=== PATIENT | female | born 1985 ===

== ENCOUNTER → 2023-05-10 08:38 | Outpatient (CLI) | payer OTHER, SELFPAY ==
[2023-05-10 09:11] LABS: Hematocrit 39.2 % (36-46); Hemoglobin 13.2 g/dL (12.0-16.0); Mean Corpuscular HGB Conc 33.7 % (30-36); Mean Corpuscular Hemoglobin 31.6 PG (26-34); Mean Corpuscular Volume 93.7 fL (80-100); Platelet Count 193 X10^3/uL (150-400); Red Blood Cell Count 4.19 X10^6/uL (4.0-5.2); Red Cell Distribution Width 12.9 % (11.6-14.8); White Blood Cell Count 4.8 X10^3/uL (4.5-11.0)
[2023-05-10 09:25] LABS: Alanine Aminotransferase 20 IU/L (<35); Albumin 4.3 g/dL (3.5-5.0); Albumin Globulin Ratio 1.3 (1.0-2.8); Alkaline Phosphatase 36 U/L (38-126); Aspartate Aminotransferase 24 IU/L (14-36); BUN Creatinine Ratio 16.7 (6-22); Bilirubin Total 0.4 mg/dL (0.2-1.3); Blood Urea Nitrogen 9 mg/dL (7-17); Calcium 9.3 mg/dL (8.4-10.2); Carbon Dioxide 27 mmol/L (22-32); Chloride 103 mmol/L (98-107); Cholesterol 162 mg/dL (140-199); Estimated Glomerular Filt Rate > 60 mL/min (>60); Globulin 3.2 g/dL (1.7-4.1); Glucose 83 mg/dL (70-100); HDL Cholesterol 46 mg/dL (40-60); HEMOLYSIS < 15 (0-50); Iron 109 ug/dL (37-170); LDL Cholesterol Calculated 103 mg/dL (<100); Potassium 4.4 mmol/L (3.4-5.1); Sodium 138 mmol/L (137-145); Total Protein 7.5 g/dL (6.3-8.2); Triglycerides 65 mg/dL (35-150)
[2023-05-10 09:36] LABS: Percent Iron Saturation 31 % (15-50); Total Iron Binding Capacity 351 ug/dL (265-497); Transferrin 260 mg/dL (206-381)
[2023-05-10 09:57] LABS: TSH w/ Reflex to FT4 0.78 uIU/mL (0.47-4.68)
[2023-05-10 09:59] LABS: Ferritin 24 ng/mL (6-137)
== END ==
PROVIDERS: PCP Registered Nurse Diabetes Educator; Referring Provider Registered Nurse Diabetes Educator; Visit Provider Registered Nurse Diabetes Educator
DX: E78.5 Hyperlipidemia, unspecified (principal); L65.0 Telogen effluvium
CPT/HCPCS: 36415; 80053; 80061; 82728; 83540; 83550; 84443; 85027

== ENCOUNTER 2023-11-08 18:47 | Emergency (ER) | payer OTHER, SELFPAY ==
[2023-11-08 18:59] VITALS: BP 120/70; PULSE 90; RESP 14; TEMP 36.6; O2SAT 100; BMI 21.6
--- NOTE | 2023-11-08 19:05 | ED.CHESTPAIN ---
HPI - Chest Pain General Chief Complaint: Chest Pain Stated Complaint: chest pain for 45 min about Time Seen by Provider: 11/08/23 19:05 Source: patient Mode of arrival: Ambulatory Limitations: no limitations History of Present Illness HPI narrative: Patient is a healthy 38-year-old female who has no past medical history presenting today with sudden onset left-sided chest pain. She reports that it started under her left breast radiating around to her back. Kind of hurts when she breathes. She denies any sort of injury she is still feeling it. It started about 1 hour ago. It started while she was driving. She has no known history of cardiac disease he has a nonsmoker denies any sort of injury. She reports that she was having a normal day until this event she has not been feeling ill she denies any fever or cough Related Data Home Medications Medication Instructions Recorded Confirmed atenolol 25 mg tablet 25 mg PO DAILY PRN 04/22/23 05/28/23 buspirone 15 mg tablet 15 mg PO BID 04/22/23 05/28/23 buspirone 7.5 mg tablet 7.5 mg PO BID 04/22/23 05/28/23 methylphenidate HCl 36 mg 36 mg PO DAILY 04/22/23 05/28/23 tablet,extended release 24 hr methylphenidate HCl 5 mg tablet 5 mg PO DAILY PRN 04/22/23 05/28/23 semaglutide 0.25 mg or 0.5 mg (2 0.25 mg SUBCUT QWEEK 04/22/23 05/28/23 mg/3 mL) subcutaneous pen injector Allergies Allergy/AdvReac Type Severity Reaction Status Date / Time No Known Drug Allergies Allergy Unverified 05/28/23 14:36 Patient History Medical History Acne (~2017) Anxiety (~2018) ADHD (~2021) Abnormal Pap smear of cervix (~2009) Irritable bowel syndrome (~2015) Colon polyps (~2015) Hyperlipidemia (~2020) Dyslipidemia Surgical History Anesthesia History of colonoscopy History of eye surgery Family History Father Schnitzler syndrome Hyperlipidemia Mother Uterine cancer Hypertension PCOS (polycystic ovarian syndrome) Hypothyroidism Sister Neuromyelitis optica PCOS (polycystic ovarian syndrome) Grandfather Cancer Grandmother Amyloidosis Grandfather Diabetes mellitus History of heart disease Hyperlipidemia Stroke Grandmother Hyperlipidemia Family/Other [id number] deficiency carrier Social History Smoking Status: Former smoker Smoking Status: Former smoker Exam Initial Vital Signs Initial Vital Signs: Vital Signs Temperature 97.9 F 11/08/23 18:59 Pulse Rate 90 11/08/23 18:59 Respiratory Rate 14 11/08/23 18:59 Blood Pressure 120/70 11/08/23 18:59 Pulse Oximetry 100 11/08/23 18:59 Oxygen Delivery Method Room Air 11/08/23 18:59 GENERAL: Alert well-appearing 38-year-old female HEENT: Head atraumatic,EOMI, pupils reactive, face symmetric, moist mucous membranes CARDIOVASCULAR: Regular rate and rhythm without murmurs, rubs or gallops. Mild tenderness left around 5 slightly reproducible RESPIRATORY: Breath sounds equal bilaterally, no wheezes rales or rhonchi. ABDOMEN: Soft, nontender. Normoactive bowel sounds all 4 quadrants. No guarding or rebound. EXTREMITIES: Normal range of motion, no clubbing or edema. Neurovascularly intact NEUROLOGICAL: Alert and oriented x4.Normal gait and speech. SKIN: Warm, dry, no laceration, no petechiae, no rashes or lesions. Scores HEART Score Heart Score history: Slightly Suspicious Heart Score EKG: Normal Heart Score Age: < 45 years old Heart Score risk factors: No known risk factors Heart Score troponin: < or = to normal limit Heart Score Total: 0 Course Orders Ordered: ED Orders 11/08/23 19:03 EKG-12 Lead Stat 11/08/23 19:05 XR chest 1V Stat 11/08/23 19:26 Complete Blood Count AUTO DIFF Stat Comprehensive Metabolic Panel Stat Lipase Stat Magnesium Stat PTT Partial Thromboplastin [place] Stat Prothrombin Time INR Stat Troponin & CK Cardiac Panel Stat Discontinued Medications Aspirin (Aspirin 81 Mg Chew Tab) 324 mg PO NOW ONE Stop: 11/08/23 19:06 Last Admin: 11/08/23 19:37 Dose: Not Given Documented By: KH Sodium Chloride (Sodium Chloride 0.9% Flush) 10 ml IV BID FLAVIO Sodium Chloride (Sodium Chloride 0.9% Flush) 10 ml IV PRN PRN PRN Reason: Flush Vital Signs Vital signs: Vital Signs - 8 hr 11/08/23 18:59 11/08/23 19:32 11/08/23 20:00 Temperature 97.9 F Pulse Rate 90 85 84 Respiratory Rate 14 25 H 13 Blood Pressure 120/70 Pulse Oximetry 100 99 100 Oxygen Delivery Method Room Air MDM - Chest Pain Lab Data 11/08/23 19:26 11/08/23 19:26 Labs: Lab Results 11/08/23 Range/Units 19:26 WBC 8.4 (4.5-11.0) X10^3/uL RBC 4.31 (4.0-5.2) X10^6/uL Hgb 13.7 (12.0-16.0) g/dL Hct 40.1 (36-46) % MCV 93.2 (80-100) fL MCH 31.8 (26-34) PG MCHC 34.1 (30-36) % RDW 13.1 (11.6-14.8) % Plt Count 197 (150-400) X10^3/uL Neut % (Auto) 61.3 (50-75) % Lymph % (Auto) 30.0 (25-40) % Jessamine % (Auto) 5.4 (3-14) % Eos % (Auto) 2.6 (2-4) % Baso % (Auto) 0.7 (0-2) % Neut # (Auto) 5200 (6714-6982) /uL Lymph # (Auto) 2500 (4643-3425) /uL Jessamine # (Auto) 400 (0-900) /uL Eos # (Auto) 200 (0-450) /uL Baso # (Auto) 100 (0-100) /uL PT 13.0 H (9.4-12.5) SECONDS INR 1.1 (0.9-1.3) APTT 35 (25.1-36.5) SECONDS Sodium 137 (137-145) mmol/L Potassium 3.8 (3.4-5.1) mmol/L Chloride 105 (98-107) mmol/L Carbon Dioxide 26 (22-32) mmol/L BUN 11 (7-17) mg/dL Creatinine 0.51 L (0.52-1.04) mg/dL Estimated GFR > 60 (>60) mL/min BUN/Creatinine Ratio 21.6 (6-22) Glucose 97 (70-100) mg/dL Calcium 9.6 (8.4-10.2) mg/dL Magnesium 2.0 (1.6-2.3) mg/dL Total Bilirubin 0.5 (0.2-1.3) mg/dL AST 20 (14-36) IU/L ALT 14 (<35) IU/L Alkaline Phosphatase 58 (38-126) U/L Total Creatine Kinase 74 (30-135) U/L Troponin I < 0.012 (0.01-0.034) ng/mL Total Protein 8.3 H (6.3-8.2) g/dL Albumin 4.8 (3.5-5.0) g/dL Globulin 3.5 (1.7-4.1) g/dL Albumin/Globulin Ratio 1.4 (1.0-2.8) Lipase 57 (23-300) U/L Imaging Data Chest x-ray: Radiologist's Impression: PROCEDURE: XR CHEST 1V INDICATIONS: chest pain TECHNIQUE: One view of the chest was acquired. COMPARISON: None. FINDINGS: Surgical changes and devices: None. Lungs and pleura: Lungs are clear. No pleural effusions or pneumothorax. Mediastinum: Mediastinal contours appear normal. Heart size is normal. Bones and chest wall: No suspicious bony lesions. Mild S-shaped thoracolumbar scoliosis. Overlying soft tissues appear unremarkable. IMPRESSION: No acute cardiopulmonary abnormality is seen. Dictated by: Samantha Wang M.D. on 11/08/2023 at 19:49 Approved by: Samantha Wang M.D. on 11/08/2023 at 19:50 ECG Data Interpretation: Normal sinus rhythm rate 85 IA interval 144 QRS [address] changes MDM Narrative Medical decision making narrative: Patient 38-year-old female presents today with sudden onset of left-sided pain radiating around to her back. She has no known cardiac risk factors she has a heart score of 0. This does seem to be musculoskeletal Blood Work has been reviewed overall reassuring negative troponin electrolytes stable. Chest x-ray has been reviewed no acute cardiopulmonary process EKG reviewed no ischemia At this time I suspect a musculoskeletal apical chest pain. Possibly costochondritis. He is extremely low risk for any sort of cardiac disease. I did discuss with her there is an echocardiogram noted in her prior records. She reports that she has some sort of alpha 1 antitrypsin antibody or trait she had excessive workup in [place]. She has normal echo she was given atenolol for anxiety but no known cardiac disease Discharge Plan Departure Patient Disposition: Home Clinical Impression: Atypical chest pain, Acute costochondritis Instructions: Costochondritis, DI for Atypical Chest Pain Activity Restrictions/Additional Instructions: *You have been diagnosed with costochondritis, atypical chest *What to do: At this time I suspect you have sprained something. Recommend heat ice light movement and activity and stretches. *Continue to take medications as directed Tylenol Motrin as needed for pain *Follow up with your primary care provider in 2-3 days or call [phone] *Return to ER if you should have increasing pain numbness tingling weakness shortness of or any new, worsening or concerning symptoms Prescriptions: No Action buspirone 15 mg tablet 15 mg PO BID buspirone 7.5 mg tablet 7.5 mg PO BID methylphenidate HCl 36 mg tablet extended release 24hr 36 mg PO DAILY methylphenidate HCl 5 mg tablet 5 mg PO DAILY PRN atenolol 25 mg tablet 25 mg PO DAILY PRN semaglutide 0.25 mg or 0.5 mg (2 mg/3 mL) pen injector 0.25 mg SUBCUT QWEEK Rx Instructions: Pt on low dose maintenance Referrals: Yair Zhang ARNP [Primary Care Provider] - Stand Alone Forms: Patient Portal/API
[2023-11-08 19:32] VITALS: PULSE 85; RESP 25; O2SAT 99
[2023-11-08 19:37] LABS: Add Manual Diff / Slide Review NO; Basophils Absolute Auto 100 /uL (0-100); Basophils Percent Auto 0.7 % (0-2); Eosinophils Absolute Auto 200 /uL (0-450); Eosinophils Percent Auto 2.6 % (2-4); Hematocrit 40.1 % (36-46); Hemoglobin 13.7 g/dL (12.0-16.0); Lymphocytes Absolute Auto 2500 /uL (1100-4500); Mean Corpuscular HGB Conc 34.1 % (30-36); Mean Corpuscular Hemoglobin 31.8 PG (26-34); Mean Corpuscular Volume 93.2 fL (80-100); Monocytes Absolute Auto 400 /uL (0-900); Monocytes Percent Auto 5.4 % (3-14); Neutrophils Absolute Auto 5200 /uL (1500-7000); Neutrophils Percent Auto 61.3 % (50-75); Platelet Count 197 X10^3/uL (150-400); Red Blood Cell Count 4.31 X10^6/uL (4.0-5.2); Red Cell Distribution Width 13.1 % (11.6-14.8); White Blood Cell Count 8.4 X10^3/uL (4.5-11.0)
[2023-11-08 19:40] LABS: INR 1.1 (0.9-1.3)
[2023-11-08 19:43] LABS: PTT Partial Thromboplastin Tim 35 SECONDS (25.1-36.5)
[2023-11-08 19:45] LABS: Alanine Aminotransferase 14 IU/L (<35); Albumin 4.8 g/dL (3.5-5.0); Albumin Globulin Ratio 1.4 (1.0-2.8); Alkaline Phosphatase 58 U/L (38-126); Aspartate Aminotransferase 20 IU/L (14-36); BUN Creatinine Ratio 21.6 (6-22); Bilirubin Total 0.5 mg/dL (0.2-1.3); Blood Urea Nitrogen 11 mg/dL (7-17); Calcium 9.6 mg/dL (8.4-10.2); Carbon Dioxide 26 mmol/L (22-32); Chloride 105 mmol/L (98-107); Creatine Kinase 74 U/L (30-135); Estimated Glomerular Filt Rate > 60 mL/min (>60); Globulin 3.5 g/dL (1.7-4.1); Glucose 97 mg/dL (70-100); HEMOLYSIS < 15 (0-50); Lipase 57 U/L (23-300); Potassium 3.8 mmol/L (3.4-5.1); Sodium 137 mmol/L (137-145); Total Protein 8.3 g/dL (6.3-8.2)
[2023-11-08 19:56] LABS: Troponin I < 0.012 ng/mL (0.01-0.034)
[2023-11-08 20:00] VITALS: PULSE 84; RESP 13; O2SAT 100
== END 2023-11-08 20:17 | disposition home or self-care (01) ==
PROVIDERS: Emergency Provider Emergency Medicine; PCP Registered Nurse Diabetes Educator
DX: R07.89 Other chest pain (principal); M94.0 Chondrocostal junction syndrome [Tietze]
CPT/HCPCS: 36415; 71045; 80053; 82550; 83690; 83735; 84484; 85025; 85610; 85730; 93005; 99283; 99284

== ENCOUNTER → 2023-11-18 16:30 | Outpatient (CLI) | payer OTHER, SELFPAY ==
--- NOTE | 2023-11-18 16:32 | DI.RAD.S_ITS ---
PROCEDURE: XR KUB INDICATIONS: epi gastric pain with meals x 5 days TECHNIQUE: One view of the abdomen acquired. COMPARISON: None. FINDINGS: Surgical changes and devices: Suspected umbilicus ring. Bowel: Bowel gas pattern is normal. Soft tissues: No suspicious abdominal calcifications. Visualized solid organ contours appear normal in size. Bones: No suspicious bony lesions. Slight leftward curvature of the thoracolumbar spine. IMPRESSION: No acute abnormality. Dictated by: Samuel George M.D. on 11/18/2023 at 17:00 Approved by: Samuel George M.D. on 11/18/2023 at 17:00
[2023-11-18 18:11] LABS: Alanine Aminotransferase 12 IU/L (<35); Albumin 4.3 g/dL (3.5-5.0); Albumin Globulin Ratio 1.3 (1.0-2.8); Alkaline Phosphatase 57 U/L (38-126); Aspartate Aminotransferase 18 IU/L (14-36); Bilirubin Total 0.3 mg/dL (0.2-1.3); Bilirubin Unconjugated 0.2 mg/dL (0.0-1.1); Cholesterol 228 mg/dL (140-199); Globulin 3.2 g/dL (1.7-4.1); HDL Cholesterol 40 mg/dL (40-60); HEMOLYSIS < 15 (0-50); LDL Cholesterol Calculated 173 mg/dL (<100); Total Protein 7.5 g/dL (6.3-8.2); Triglycerides 76 mg/dL (35-150)
[2023-11-18 18:44] LABS: Ferritin 21 ng/mL (6-137)
== END ==
LOC: LAB 16:31
PROVIDERS: PCP Registered Nurse Diabetes Educator; Referring Provider Physician Assistant; Visit Provider Physician Assistant
DX: R10.9 Unspecified abdominal pain (principal); E78.5 Hyperlipidemia, unspecified; L65.0 Telogen effluvium
CPT/HCPCS: 36415; 74018; 80061; 80076; 82728; 83013

== ENCOUNTER → 2023-11-27 14:20 | Outpatient (CLI) | payer OTHER, SELFPAY ==
--- NOTE | 2023-11-27 14:21 | DI.US.S_ITS ---
PROCEDURE: US ABDOMEN LIMITED INDICATIONS: 5 days with RUQ pain, hx with gall bladder sludge 2013 TECHNIQUE: Real-time scanning was performed of the abdominal and retroperitoneal organs, with image documentation. COMPARISON: None. FINDINGS: Liver: Liver is normal in size and homogeneous in echotexture. Gallbladder: Sonolucent without evidence cholelithiasis, gallbladder wall thickening or pericholecystic fluid. No sonographic Trinidad sign. Common bile duct: 4.4 mm. Pancreas: Visualized portions of the pancreas are within normal limits. Kidneys: Echogenic renal medulla noted bilaterally with sparing of the cortex. No evidence of hydronephrosis Miscellaneous: No free abdominal fluid. 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 Consider follow-up contrast CT renal protocol. Approved by: Jerel Roberto M.D. on 11/27/2023 at 16:41
== END ==
LOC: US 14:20
PROVIDERS: PCP Registered Nurse Diabetes Educator; Referring Provider Physician Assistant; Visit Provider Physician Assistant
DX: R10.9 Unspecified abdominal pain (principal)
CPT/HCPCS: 76705

== ENCOUNTER → 2024-08-12 17:52 | Outpatient (CLI) | payer OTHER, SELFPAY | PROVIDERS: PCP Family Medicine; Visit Provider Physician Assistant Medical | DX: R10.9 Unspecified abdominal pain (principal) | CPT/HCPCS: 87086 ==

== ENCOUNTER → 2024-08-13 14:50 | Outpatient (CLI) | payer OTHER, SELFPAY ==
[2024-08-13 15:09] LABS: Add Manual Diff / Slide Review NO; Basophils Absolute Auto 100 /uL (0-100); Basophils Percent Auto 0.6 % (0-2); Eosinophils Absolute Auto 200 /uL (0-450); Hematocrit 39.5 % (36-46); Hemoglobin 13.4 g/dL (12.0-16.0); Lymphocytes Absolute Auto 2400 /uL (1100-4500); Lymphocytes Percent Auto 27.4 % (25-40); Mean Corpuscular HGB Conc 33.9 % (30-36); Mean Corpuscular Hemoglobin 31.6 PG (26-34); Mean Corpuscular Volume 93.1 fL (80-100); Monocytes Absolute Auto 300 /uL (0-900); Monocytes Percent Auto 3.4 % (3-14); Neutrophils Absolute Auto 5900 /uL (1500-7000); Neutrophils Percent Auto 66.6 % (50-75); Platelet Count 234 X10^3/uL (150-400); Red Blood Cell Count 4.25 X10^6/uL (4.0-5.2); Red Cell Distribution Width 13.3 % (11.6-14.8); White Blood Cell Count 8.9 X10^3/uL (4.5-11.0)
[2024-08-13 16:01] LABS: Ferritin 19 ng/mL (6-137)
== END ==
LOC: LAB 14:51
PROVIDERS: PCP Family Medicine; Referring Provider Family Medicine; Visit Provider Family Medicine
DX: R23.3 Spontaneous ecchymoses (principal); Q61.5 Medullary cystic kidney; E88.01 Alpha-1-antitrypsin deficiency; L40.9 Psoriasis, unspecified; Z83.2 Family history of diseases of the blood and blood-forming organs and certain disorders involving the immune mechanism; Z77.011 Contact with and (suspected) exposure to lead
CPT/HCPCS: 82728; 82784; 83516; 83655; 85025; 85246

== ENCOUNTER → 2024-09-11 13:44 | Outpatient (CLI) | payer OTHER, SELFPAY ==
--- NOTE | 2024-09-11 13:46 | DI.CT.S_ITS ---
PROCEDURE: CT ABDOMEN RENAL PROTOCOL INDICATIONS: concern for medullary kidney on prior US TECHNIQUE: Optional 5 mm thick noncontrast images acquired from the diaphragm to the iliac crests. After the administration of intravenous contrast, 5 mm thick images again acquired from the diaphragm to the iliac crests in the arterial and urographic phases. 5 mm thick coronal and sagittal reformats were then acquired. For radiation dose reduction, the following was used: automated exposure control, adjustment of mA and/or kV according to patient size. COMPARISON: [facility], , US ABDOMEN LIMITED, 11/27/2023, 14:32. FINDINGS: Image quality: Diagnostic. Kidneys and Ureters: 0.4 x 0.7 cm nonobstructing left-sided nephrolithiasis. No medullary nephrocalcinosis. OTHER: Lower chest: A couple ground-glass nodules measuring less than 5 mm in the right lower lobe, probably post infectious/inflammatory in this age group. Liver: No solid mass. Gallbladder: Cholelithiasis without wall thickening or adjacent fat stranding to suggest acute cholecystitis. Biliary ducts: No biliary dilation. Pancreas: No ductal dilation. Spleen: Size is within normal limits. Adrenal Glands: No adrenal nodules. Stomach and Bowel: Normal colonic caliber, without significant wall thickening. Peritoneum: No abnormal intraperitoneal fluid. No free air. Ventral Wall: No hernia. Abdominal Nodes: No retroperitoneal or mesenteric adenopathy by size criteria. Vessels: Aorta and inferior vena cava are normal in size. Bones: No aggressive osseous abnormality. IMPRESSION: 4 x 7 mm nonobstructing left left-sided nephrolithiasis, without hydronephrosis. No evidence of medullary nephrocalcinosis. Dictated by: Samuel George M.D. on 09/12/2024 at 7:13 Approved by: Samuel George M.D. on 09/12/2024 at 7:14
== END ==
PROVIDERS: PCP Family Medicine; Referring Provider Family Medicine; Visit Provider Family Medicine
DX: Q61.5 Medullary cystic kidney (principal); K80.20 Calculus of gallbladder without cholecystitis without obstruction; N20.0 Calculus of kidney; E88.01 Alpha-1-antitrypsin deficiency; R31.9 Hematuria, unspecified; R23.3 Spontaneous ecchymoses; R91.8 Other nonspecific abnormal finding of lung field
CPT/HCPCS: 74170; Q9967

== ENCOUNTER → 2025-05-19 15:55 | Outpatient (CLI) | payer OTHER, SELFPAY ==
--- NOTE | 2025-05-19 15:57 | DI.RAD.S_ITS ---
PROCEDURE: XR LUMBAR SPINE 2-3V
== END ==
PROVIDERS: PCP Family Medicine; Referring Provider Family Medicine; Visit Provider Family Medicine
DX: M47.816 Spondylosis without myelopathy or radiculopathy, lumbar region (principal); M41.9 Scoliosis, unspecified; M54.50 Low back pain, unspecified; G89.29 Other chronic pain
CPT/HCPCS: 72100

== ENCOUNTER → 2025-06-07 12:46 | Outpatient (CLI) | payer OTHER, SELFPAY ==
--- NOTE | 2025-06-07 12:47 | DI.US.S_ITS ---
US breast BI limited, MM diagnostic mammo BI: 06/07/2025 BI-RADS: 3 CLINICAL: 39-year old female for bilateral diagnostic mammogram and bilateral diagnostic breast ultrasound. Tyrer-Cuzick lifetime risk of 9.3%. No personal or first- degree family history of breast cancer. The patient reports a palpable abnormality (1 year) and yellow nipple discharge (1 year) in both breasts. There is generalized lumpiness in the right breast. PRIOR EXAMS: None. This is a baseline examination. MAMMOGRAPHY TECHNIQUE: 2D and 3D (tomosynthesis) digital mammographic views obtained, with additional images as needed for full coverage. Current study was also evaluated with a Computer Aided Detection (CAD) system. ULTRASOUND TECHNIQUE: TARGETED Bilateral Breast Ultrasound: Real-time ultrasound exam was performed focused to area of clinical and/or imaging concern. Real-time burgess scale and color doppler imaging of the area of clinical interest was performed with image documentation. DENSITY D. The breasts are extremely dense, which lowers the sensitivity of mammography. MAMMOGRAPHY FINDINGS Right (finding-1): Central, Retroareolar, Far Anterior depth: There is no suspicious mammographic finding to account for concern by the patient of nipple discharge. No suspicious mass, asymmetry, microcalcification, or other abnormality seen. Left (finding-2): Upper Outer Quadrant, Posterior depth: A skin marker was placed in the area of concern, and no mammographic abnormalities are identified or to account for concern by the patient of a palpable lump. No suspicious mass, asymmetry, microcalcification, or other abnormality seen. Left (finding-3): Central, Retroareolar, Far Anterior depth: There is no suspicious mammographic finding to account for concern by the patient of nipple discharge. No suspicious mass, asymmetry, microcalcification, or other abnormality seen. ULTRASOUND FINDINGS Right (finding-1): Central, Retroareolar: There is no sonographic abnormality to account for concern by the patient of nipple discharge. Left: Upper Outer at 12:30, 4 cm from nipple, measuring 1.1 x 0.7 x 1 cm: There is an oval, circumscribed, hypoechoic mass that is parallel showing posterior acoustic enhancement. 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 Doppler shows no vascularity. This is an incidental finding. Left (finding-2): Upper Outer at 1:30, 9 cm from nipple: Underlying the surface marker, there is no sonographic abnormality to account for concern by the patient of a palpable lump. Left (finding-3): Central, Retroareolar: There is no sonographic abnormality to account for concern by the patient of nipple discharge. IMPRESSION: Right * No evidence of malignancy. Left (Mass): Upper Outer at 12:30, 4 cm from nipple, measuring 1.1 x 0.7 x 1 cm * Probably Benign. RECOMMENDATIONS Left: Upper Outer at 12:30, 4 cm from nipple * Six month followup with diagnostic ultrasound. Bilateral * Clinical follow-up is recommended, and further management of palpable abnormalities or other focal signs or symptoms should be based on the results of clinical evaluation. If palpable abnormality or other concerning symptom persists or progresses, further clinical evaluation should be considered. * Nipple discharge that is non-spontaneous and bilateral or from multiple ducts in the same breast is typically benign or physiologic. Clinical follow-up is recommended, and further management of nipple discharge should be based on the results of clinical evaluation. If nipple discharge persists and/or increases in clinical suspicion, further clinical evaluation should be considered. COMMENTS: Findings and recommendations were conveyed to the patient during today's evaluation. OVERALL ASSESSMENT CATEGORY BI-RADS-3: Probably Benign. ELECTRONICALLY SIGNED: Maida Millan M.D. on 06/07/2025 at 05:04:19 PM PT Interpreting Station ID: [id number]
== END ==
LOC: MAMMO 12:47
PROVIDERS: PCP Family Medicine; Referring Provider Family Medicine; Visit Provider Family Medicine
DX: R92.8 Other abnormal and inconclusive findings on diagnostic imaging of breast (principal); N64.4 Mastodynia; N63.21 Unspecified lump in the left breast, upper outer quadrant; N64.52 Nipple discharge; R92.343 Mammographic extreme density, bilateral breasts
CPT/HCPCS: 76642; 77066; G0279

== ENCOUNTER → 2025-06-22 13:53 | Outpatient (CLI) | payer OTHER, SELFPAY ==
[2025-06-22 14:49] LABS: Cholesterol 175 mg/dL (140-199); HDL Cholesterol 62 mg/dL (40-60); Triglycerides 110 mg/dL (35-150)
== END ==
PROVIDERS: PCP Family Medicine; Referring Provider Family Medicine; Visit Provider Family Medicine
DX: N64.52 Nipple discharge (principal)
CPT/HCPCS: 36415; 80061; 84146